=== PATIENT | male | born 1940 | race Caucasian/White ===

== ENCOUNTER 2017-02-25 19:30 | Inpatient (IN) | payer OTHER ==
[~2017-02-25] VITALS: Ht 182.9 cm; Wt 84.0 kg
[2017-02-25] MEDS ORDERED: NITROGLYCERIN SINGLE TAB 0.4 MG SL ONE (20:11)
[2017-02-25] MEDS ORDERED: ASPIRIN 81 MG TABLET CHEW ONE (20:11)
[2017-02-25] MEDS ORDERED: MAALOX/HYOSCYAMINE/LIDOCAINE 45 ML BTL ONE (20:11)
[2017-02-25] MEDS: NITROGLYCERIN SINGLE TAB 0.4 MG SL PRN ×2 (20:25→20:55)
[2017-02-25 20:29] LABS: HEMATOCRIT 40.2 % (39.2-51.8); HEMOGLOBIN 13.6 g/dL (13.7-18.0); WHITE BLOOD COUNT 9.2 x10^3/uL (3.4-10)
[2017-02-25] MEDS ORDERED: SODIUM CHLORIDE FLUSH 10ML SYR IVF ONE (20:30)
[2017-02-25] MEDS ORDERED: ASPIRIN 81 MG TABLET CHEW PO ONE (20:30)
[2017-02-25] MEDS ORDERED: MAALOX/HYOSCYAMINE/LIDOCAINE 45 ML BTL PO ONE (20:30)
[2017-02-25 20:38] LABS: ASPARTATE AMINO TRANSFERASE 13 U/L (15-37); BLOOD UREA NITROGEN 13 mg/dL (7-18)
[2017-02-25 20:48] LABS: IS PT STATUS REG ER OR PRE ER? YES
[2017-02-25] MEDS ORDERED: RABE20TA26 PO (20:50)
[2017-02-25] MEDS ORDERED: RAMI10CA PO (20:50)
[2017-02-25] MEDS ORDERED: LEVO125T PO (20:50)
[2017-02-25] MEDS ORDERED: TADA20TA PO (20:50)
[2017-02-25] MEDS ORDERED: ATOR40TA78 PO (20:50)
[2017-02-25] MEDS ORDERED: METO50TA82 PO (20:50)
[2017-02-25] MEDS ORDERED: KETOROLAC 30 MG/1 ML IVPush ONE (21:00)
[2017-02-25] MEDS ORDERED: KETOROLAC 30 MG/1 ML ONE (21:18)
[2017-02-25] MEDS ORDERED: MORPHINE SULFATE 4 MG/ML, 1ML ONE (23:30)
[2017-02-25] MEDS: MORPHINE SULFATE 4 MG/ML, 1ML IVPush PRN (23:38)
[2017-02-26] MEDS ORDERED: TEMAZEPAM 15 MG CAPSULE PO PRN
[2017-02-26] MEDS ORDERED: ENALAPRILAT 1.25 MG/ML, 2ML IVPush PRN
[2017-02-26] MEDS ORDERED: ONDANSETRON ODT 4 MG PO PRN
[2017-02-26] MEDS ORDERED: morphine SULFATE 10 MG/ML, 1ML IVPush PRN
[2017-02-26] MEDS: PANTOPRAZOLE 40 MG IV IVPush SCH ×2 (01:30→09:35)
[2017-02-26] MEDS: HEPARIN 5,000 UNITS/ML, 1ML SQ SCH ×2 (01:30→13:27)
[2017-02-26] MEDS ORDERED: PANTOPRAZOLE 40 MG IV ONE (01:46)
[2017-02-26] MEDS ORDERED: MORPHINE SULFATE 4 MG/ML, 1ML ONE (01:46)
[2017-02-26] MEDS ORDERED: HEPARIN 5,000 UNITS/ML, 1ML ONE (01:46)
[2017-02-26 02:57] LABS: IS PT STATUS REG ER OR PRE ER? YES
[2017-02-26] MEDS: MORPHINE SULFATE 4 MG/ML, 1ML IVPush PRN (03:16)
[2017-02-26 07:40] VITALS: BP 171/98
[2017-02-26] MEDS ORDERED: METF500T4 PO (07:45)
[2017-02-26] MEDS ORDERED: GUAI600T80 PO (07:45)
[2017-02-26] MEDS ORDERED: REGADENOSON 0.4 MG/5 ML SYRINGE ONE (08:41)
[2017-02-26 09:00] LABS: IS PT STATUS REG ER OR PRE ER? NO
[2017-02-26 09:16] VITALS: BP 169/73
[2017-02-26 10:10] VITALS: BP 164/80
[2017-02-26] MEDS ORDERED: METOPROLOL TARTRATE 50 MG TABLET PO ONE (13:30)
[2017-02-26 14:25] VITALS: BP 152/82
== END 2017-02-26 19:20 | disposition home or self-care (01) | DRG 313 ==
LOC: ED 21:59 → EDIP 22:01 → 5SO 02-26 07:36
PROVIDERS: ADMIT Internal Medicine; ATTEND Internal Medicine
DX: R07.89 Other chest pain (principal); I25.2 Old myocardial infarction; I11.9 Hypertensive heart disease without heart failure; E11.9 Type 2 diabetes mellitus without complications; I16.0 Hypertensive urgency; K21.9 Gastro-esophageal reflux disease without esophagitis; E78.5 Hyperlipidemia, unspecified; I25.10 Atherosclerotic heart disease of native coronary artery without angina pectoris; Z79.82 Long term (current) use of aspirin; Z85.47 Personal history of malignant neoplasm of testis; Z86.711 Personal history of pulmonary embolism; Z95.5 Presence of coronary angioplasty implant and graft
CPT/HCPCS: 36415; 71010; 71275; 78452; 80053; 83690; 84484; 85025; 85379; 93005; 93017; 93306; 96374; J1644; J1885; J2785; A9502; C9113; C9898